=== PATIENT | male | born 1955 | race Caucasian/White ===

== ENCOUNTER → 2017-09-08 | Outpatient (CLI) | payer OTHER ==
--- NOTE | 2017-09-08 17:23 | RAD ---
PA and lateral chest radiographs 09/08/2017 Clinical history: Cough for one month. PA and lateral digital radiographs of the chest were obtained. Comparison study is dated 09/05/2010. The right arm PICC has been removed. The cardiac silhouette is normal in size. The thoracic aorta is mildly tortuous. No acute pulmonary infiltrate is seen. No pleural effusion or pneumothorax is noted. Degenerative changes are seen involving the thoracic spine. Impression: No acute abnormality is seen.
== END | disposition home or self-care (01) ==
LOC: PMG 15:56
PROVIDERS: ATTEND Physician Assistant
DX: R05 Cough (principal); Q25.46 Tortuous aortic arch
CPT/HCPCS: 71020

== ENCOUNTER 2018-02-13 11:56 | Emergency (ER) | payer OTHER ==
[2018-02-13 12:01] VITALS: BP 160/106
--- NOTE | 2018-02-13 12:36 | PHYS DOC ---
Past History Past Medical History: Other Past Surgical History: No Surgical History Alcohol Use: None Drug Use: None Adult General Chief Complaint Chief Complaint: DIZZY/LIGHT HEADED HPI HPI 62-year-old male presents with episode of dizziness while he was at [employer]. The patient isn't sure and was standing in the back of the sanctuary. He began to walk into the central area for this service when he began he had dizzy which he describes as an off balance disequilibrium. The patient had to sit down. This feeling continued for about 30 minutes. It has completely resolved at this time. Patient had diaphoresis at the time, but no chest pain or shortness of breath. He denies recent fever, chills, nausea, vomiting, diarrhea, constipation. The patient was in and out yesterday working in the weather. He does not believe he is dehydrated. He has a history significant for hyperlipidemia for which he takes Lipitor. He has never been diagnosed with high blood pressure and has in fact been told he has good blood pressure. No history of heart attacks or strokes. Review of Systems Review of Systems Constitutional: Denies fever or chills [] Eyes: Denies change in visual acuity, redness, or eye pain [] HENT: Denies nasal congestion or sore throat [] Respiratory: Denies cough or shortness of breath [] Cardiovascular: No additional information not addressed in HPI [] GI: Denies abdominal pain, nausea, vomiting, bloody stools or diarrhea [] : Denies dysuria or hematuria [] Musculoskeletal: Denies back pain or joint pain [] Integument: Denies rash or skin lesions [] Neurologic: dizziness [] Endocrine: Denies polyuria or polydipsia [] All other systems were reviewed and found to be within normal limits, except as documented in this note. Allergies Allergies Allergies Coded Allergies Type Severity Reaction Last Updated Verified Penicillins Allergy Unknown 02/13/18 Yes Physical Exam Physical Exam Constitutional: Well developed, well nourished, no acute distress, non-toxic appearance. [] HENT: Normocephalic, atraumatic, bilateral external ears normal, oropharynx moist, no oral exudates, nose normal. [] Eyes: PERRLA, EOMI, conjunctiva normal, no discharge. [] Neck: Normal range of motion, no tenderness, supple, no stridor. [] Cardiovascular:Heart rate regular rhythm, no murmur [] Lungs & Thorax: Bilateral breath sounds clear to auscultation [] Abdomen: Obese, Bowel sounds normal, soft, no tenderness, no masses, no pulsatile masses. [] Skin: Warm, dry, no erythema, no rash. [] Back: No tenderness, no CVA tenderness. [] Extremities: No tenderness, no cyanosis, no clubbing, ROM intact, no edema. [] Neurologic: Alert and oriented X 3, normal motor function, normal sensory function, no focal deficits noted. [] Psychologic: Affect normal, judgement normal, mood normal. [] Current Patient Data Vital Signs Vital Signs Date Time Temp Pulse Resp B/P (MAP) Pulse Ox O2 Delivery O2 Flow Rate FiO2 02/13/18 12:01 98.1 63 16 96 Room Air EKG EKG Normal sinus rhythm, rate 57, left axis deviation, no ST elevation or depression , flattened T waves.[] Radiology/Procedures Radiology/Procedures CT HEAD WO CONTRAST History: Headache/dizziness x 1 day, near syncope Comparison: None. Technique: Noncontrast CT imaging was performed of the head. Exposure: One or more of the following individualized dose reduction techniques were utilized for this examination: 1. Automated exposure control 2. Adjustment of the mA and/or kV according to patient size 3. Use of iterative reconstruction technique. Findings: No acute extra-axial or parenchymal hemorrhage is identified. There is no significant intra-axial mass effect, midline shift, or extra-axial fluid collection. The mckeon-white differentiation of the major vascular territories is preserved. The ventricles, sulci, and cisterns are within normal limits in size and configuration. The mastoid air cells and the visualized paranasal sinuses are aerated. No acute calvarial abnormality is identified. Impression: 1. No acute intracranial abnormality is identified. CHEST PA LATERAL History: Near syncope Comparison: September 08, 2017 Findings: 2 views of the chest are submitted. There is no infiltrate, pneumothorax, or effusion. The cardiac silhouette is within normal limits in size. The trachea is in the midline. No acute osseous abnormality is identified. There is compression deformity of a mid thoracic vertebral body as seen previously. There may be emphysema. Impression: 1. There is no evidence of acute cardiopulmonary disease. Electronically signed by: rBain Porter MD (02/13/2018 12:57 PM) [facility] [] Course & Med Decision Making Course & Med Decision Making Pertinent Labs and Imaging studies reviewed. (See chart for details) The patient is checked x-ray is unremarkable. His head CT is unremarkable. His labs are unremarkable. His troponin is negative. He has remained asymptomatic here in the ED. I think the patient either got mildly dehydrated or potentially had transient hypoglycemia that caused his symptoms. I advised he follow-up with his PCP. If his symptoms return or anything new develops, he can return to the ED. [place] Disclaimer Dragon Disclaimer This electronic medical record was generated, in whole or in part, using a voice recognition dictation system. Departure Departure: Referrals: TITI NINO (PCP) ROBYN VILLARREAL DO February 13, 2018 12:36
[2018-02-13] MEDS ORDERED: IV NORMAL SALINE 1,000ML 1,000 ML IV ONE (12:45)
[2018-02-13 12:51] LABS: BASO % 1 % (0-3); EOS # 0.2 x10^3/uL (0.0-0.7); EOS % 3 % (0-3); HEMATOCRIT 50.2 % (39.0-53.0); HEMOGLOBIN 17.4 g/dL (13.0-17.5); LYMPH # 1.3 x10^3/uL (1.0-4.8); LYMPH % 22 % (24-48); MEAN CORPUSCULAR HEMOGLOBIN 32 pg (25-35); MEAN CORPUSCULAR HGB CONC 35 g/dL (31-37); MEAN CORPUSCULAR VOLUME 94 fL (79-100); MONO # 0.6 x10^3/uL (0.0-1.1); MONO % 10 % (0-9); NEUT # 3.8 x10^3uL (1.8-7.7); NEUT % 64 % (31-73); PLATELET COUNT 232 x10^3/uL (140-400); RED BLOOD COUNT 5.37 x10^6/uL (4.30-5.70); RED CELL DISTRIBUTION WIDTH 13.4 % (11.5-14.5); WHITE BLOOD COUNT 5.9 x10^3/uL (4.0-11.0)
[2018-02-13 12:57] LABS: CALCIUM 9.1 mg/dL (8.5-10.1); CREATININE 1.1 mg/dL (0.7-1.3); GFR 67.6; POTASSIUM 3.8 mmol/L (3.5-5.1)
--- NOTE | 2018-02-13 13:01 | RAD ---
CHEST PA LATERAL History: Near syncope Comparison: September 08, 2017 Findings: 2 views of the chest are submitted. There is no infiltrate, pneumothorax, or effusion. The cardiac silhouette is within normal limits in size. The trachea is in the midline. No acute osseous abnormality is identified. There is compression deformity of a mid thoracic vertebral body as seen previously. There may be emphysema. Impression: 1. There is no evidence of acute cardiopulmonary disease. Electronically signed by: Brain Porter MD (02/13/2018 12:57 PM) [facility]
--- NOTE | 2018-02-13 13:02 | RAD ---
CT HEAD WO CONTRAST History: Headache/dizziness x 1 day, near syncope Comparison: None. Technique: Noncontrast CT imaging was performed of the head. Exposure: One or more of the following individualized dose reduction techniques were utilized for this examination: 1. Automated exposure control 2. Adjustment of the mA and/or kV according to patient size 3. Use of iterative reconstruction technique. Findings: No acute extra-axial or parenchymal hemorrhage is identified. There is no significant intra-axial mass effect, midline shift, or extra-axial fluid collection. The mckeon-white differentiation of the major vascular territories is preserved. The ventricles, sulci, and cisterns are within normal limits in size and configuration. The mastoid air cells and the visualized paranasal sinuses are aerated. No acute calvarial abnormality is identified. Impression: 1. No acute intracranial abnormality is identified. Electronically signed by: Brain Porter MD (02/13/2018 12:59 PM) [facility]
--- NOTE | 2018-02-13 15:55 | EKG ---
[address] [address] Test Date: 2018-02-13 Test Time: 12:04:58 Pat Name: JEFFREY RINCON Department: Room: Gender: M Web Art Director: ERIBERTO : 1955 Requested By: ROBYN VILLARREAL Order Number: [id number] Reading MD: Measurements Intervals [place] Rate: 57 P: 31 TX: 166 QRS: -41 QRSD: 88 T: 6 QT: 472 QTc: 463 Interpretive Statements SINUS RHYTHM ABNORMAL LEFT AXIS DEVIATION LEFT ANTERIOR FASCICULAR BLOCK QRS(T) CONTOUR ABNORMALITY CONSIDER ANTEROSEPTAL MYOCARDIAL DAMAGE ABNORMAL ECG RI6.01 No previous ECG available for comparison
== END 2018-02-13 13:47 | disposition home or self-care (01) ==
LOC: ER 11:56
DX: R42 Dizziness and giddiness (principal); E78.5 Hyperlipidemia, unspecified; Z88.0 Allergy status to penicillin
CPT/HCPCS: 36415; 70450; 71046; 80048; 84484; 85025; 93005; 96360; 99285-25; J7030